=== PATIENT | male | born 1975 | race Caucasian/White ===

== ENCOUNTER 2017-06-27 12:30 | Emergency (ER) | payer BC ==
[~2017-06-27] VITALS: Ht 182.9 cm; Wt 95.1 kg
[2017-06-27 12:47] VITALS: TEMP 36.7; Ht 182.9 cm; Wt 95.1 kg
[2017-06-27] MEDS ORDERED: GELATIN SPONGE 12-7MM EXT STA (13:11)
[2017-06-27] MEDS ORDERED: DIPHTHERIA/TETANUS/PERTUSSIS 0.5 ML SYR/VIAL IM. ONE (13:30)
--- NOTE | 2017-06-27 13:31 | EMERGENCY ROOM VISIT NOTE ---
ED Visit Note First contact with patient: 12:50 CHIEF COMPLAINT: Finger laceration HISTORY OF PRESENT ILLNESS: This 42-year-old male patient presents to the emergency department ambulatory after cutting the with minimal finger just prior to arrival. The patient states that he was attempting to replace a window , when the window sliced across the finger. He reports the window took a piece of skin off. The bleeding has not stopped. There is no weakness or numbness of the area. Patient is unsure of his tetanus status. Full range of motion of the finger. The patient rates the pain as stinging and 1/10. REVIEW OF SYSTEMS: A 6 system review of systems was completed with positives and pertinent negatives listed in the HPI. ALLERGIES: Adhesives, codeine MEDICATIONS: No chronic medications PMH: No significant past medical history. SOCIAL HISTORY: The patient lives locally with his family. He is a smoker and admits to occasional alcohol use. PHYSICAL EXAM: Vital Signs: Reviewed Nurse's notes, vital signs stable. GENERAL : This is a 42-year-old male, in no acute distress, well-developed, well- nourished. SKIN: There is a 1.5 cm long avulsion laceration to the dorsal surface of the left middle finger. It is superficial and the top layer of skin has been avulsed. There is no foreign material in the wound and it looks clean. There is active bleeding. No deep structures are seen in the base of the wound. Extension and flexion of the finger is full and strong. Sensation to pain and light touch is intact. EMERGENCY DEPARTMENT COURSE: I examined the patient. Verbal consent was obtained to perform the procedure. The laceration was cleaned with saline and betadine. Gelfoam was applied to the avulsion laceration and the area was dressed with a pressure dressing. The bleeding stopped. The patient tolerated the procedure well. The patient was given a tetanus booster. The patient was discharged home in stable condition. Medication reconciliation: I attest that I have personally reviewed the patient 's current medication list. Blood Pressure Screening: Patient was found to have a slightly elevated blood pressure due to circumstances. I do not believe that the patient requires hypertension monitoring. DIAGNOSIS: Avulsion laceration of the finger Current/Historical Medications No Active Prescriptions or Reported Meds Allergies Coded Allergies: Adhesives (Verified Allergy, Unknown, 06/27/17) Codeine (Verified Allergy, Unknown, HAS TOLERATED MORPHINE IV, 06/27/17) Vital Signs Date Time Temp Pulse Resp B/P (MAP) Pulse Ox O2 Delivery O2 Flow Rate FiO2 06/27/17 13:42 87 20 138/75 99 06/27/17 12:47 36.7 98 16 152/97 97 Room Air Medications Administered Medications (Trade) Dose Ordered Sig/Nina Route Start Time Stop Time Status Last Admin Dose Admin Gelatin (Surgifoam Sponge 12-7MM (SMALL)) 1 ea ONE STAT EXT 06/27/17 13:11 06/27/17 13:13 DC 06/27/17 13:18 1 EA Diphtheria/ Pertussis/Tetanus Vacc (Adacel Inj) 0.5 ml ONCE ONCE IM. 06/27/17 13:30 06/27/17 13:31 DC 06/27/17 13:36 0.5 ML Departure Information Impression Primary Impression: Laceration of finger Dispostion Home / Self-Care Condition GOOD Prescriptions No Active Prescriptions or Reported Meds Referrals No Doctor, Assigned (PCP) Patient Instructions [facility] Additional Instructions You have been treated in the Emergency Department today for your finger Avulsion. Leave the GELFOAM and dressing in place for the next 48 hours. Keep the dressing clean and dry until time for removal. To remove the GELFOAM dressing, remove the overlying tape and then soak the wound in warm water until the piece of GELFOAM can be easily removed. Proper wound care is essential for adequate wound healing and infection prevention. You can shower and clean the wound with soap and water. Do not scour over the wound, pat dry with a towel. You can use an antibiotic ointment with a dressing/bandage over the wound for the next 3-4 days. After this time you may leave the wound dry and open to the air. Look for signs of infection of the wound including: increased pain, swelling, foul discharge, streaking, or increased temperature. If any of these are noticed you should return to the Emergency Department for further assessment and treatment. As with any laceration you may have received nerve damage to the surrounding tissues. This damage could be permanent. For pain control, you can use the following ggqj-[id number] medicines (if >12 yo): - Regular strength (325mg/tab) Tylenol (acetaminophen) 2 tabs every 4-6 hours as needed. Do not exceed 12 tablets in a 24 hour period. Avoid taking more than 4 grams (4000 mg) of Tylenol per day. This includes any other sources of acetaminophen you may take on a regular basis. - Regular strength (200 mg/tab) Advil (ibuprofen) 1-2 tabs every 4-6 hours as needed. Do not exceed a dose of 3200 mg per day. Return to the emergency department if your symptoms worsen despite treatment course outlined above. Problem Qualifiers Primary Impression: Laceration of finger Encounter type: initial encounter Finger: middle finger Damage to nail status: without damage Foreign body presence: without foreign body Laterality: left Qualified Codes: S61.213A - Laceration without foreign body of left middle finger without damage to nail, initial encounter
[2017-06-27 13:42] VITALS: BP 138/75; PULSE 87; O2SAT 99
== END 2017-06-27 13:43 | disposition home or self-care (01) ==
LOC: C.EDB 12:31 → C.EDD 13:43
DX: S61.213A Laceration without foreign body of left middle finger without damage to nail, initial encounter (principal); W45.8XXA Other foreign body or object entering through skin, initial encounter; Y92.9 Unspecified place or not applicable; F17.210 Nicotine dependence, cigarettes, uncomplicated